=== PATIENT | male | born 1970 | race Caucasian/White ===

== ENCOUNTER 2025-05-11 15:05 | Emergency (ER) | payer BC, SELFPAY ==
--- NOTE | ~2025-05-11 | CT_ITS ---
EXAMINATION: CT HEAD WITHOUT CONTRAST CLINICAL INFORMATION: New onset dizziness, headache COMPARISON: None available. TECHNIQUE: Contiguous axial imaging was performed from the skull base to vertex without intravenous administration of contrast. This CT examination was performed using dose optimization techniques as appropriate, variously including the following: *Automated exposure control *Adjustment of mA and/or kV according to patient size (this includes techniques or standardized protocols for targeted exams where dose is matched to indication/reason for exam; i.e. extremities or head) *Use of iterative reconstruction technique FINDINGS: There is no evidence of acute intracranial hemorrhage or edematous large vessel territorial infarction. No abnormal mass effect or midline shift is seen. Phan to white matter differentiation is well preserved. No abnormal extra-axial fluid collections are identified. The ventricles are normal in size. No abnormal attenuation in the brain parenchyma. Cerebellar tonsils appear appropriately positioned. No acute calvarial fracture.. Paranasal sinuses and mastoid air cells are well-aerated. CT/CT head/brain wo IV con IMPRESSION: No CT evidence of acute intracranial hemorrhage or edematous territorial infarction.. Cause of the patient's symptoms has not been determined. Clinically correlate. Further imaging/follow-up imaging as clinically indicated. Electronically signed by: Eligio Sarabia MD 05/11/2025 04:27 PM [facility]
--- NOTE | ~2025-05-11 | XR_ITS ---
EXAMINATION: XR CHEST 2 VIEWS HISTORY: dizziness COMPARISON: There are no prior studies available for comparison. FINDINGS: PA and lateral views of the chest are submitted. The lungs are expanded and clear. There is no pleural effusion, pneumothorax, or pulmonary vascular congestion. The heart is normal in size. There is mild degenerative disc disease of the spine. XR/XR chest 2V IMPRESSION: No acute cardiopulmonary abnormality. Electronically signed by: Carlitos Zhou MD 05/11/2025 03:51 PM [facility]
[2025-05-11 15:24] VITALS: BP 157/88; PULSE 63; RESP 18; TEMP 36; O2SAT 96; BMI 33.6
--- NOTE | 2025-05-11 15:24 | ED_ITS ---
HPI - General Adult General Chief complaint: General Medical Stated complaint: vertigo, bp was high. ref here by pc Time Seen by Provider: 05/11/25 19:40 Source: patient, RN notes reviewed and old records reviewed Mode of arrival: ambulatory Limitations: no limitations History of Present Illness ED Provider: Gurpreet JOSEPH narrative: 55-year-old male who denies any past medical history presents for evaluation of dizziness and high blood pressure The patient reports that he was sick last week for 3 days with what he thinks was the flu. He reports this morning he woke up feeling somewhat dizzy that seen worse with positional changes, especially when he bent over to put his boots on. 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 The patient denies any headaches. He reports his symptoms have resolved. Denies any history of high blood pressure he is not currently on any medication. He does reports some mild left-sided facial pressure in his concerned he is getting a sinus infection. He reports chronic tinnitus No other complaints or concerns Related Data Previous Rx's ?Medication ?Instructions ?Recorded azithromycin 250 mg tablet See Rx Instructions PO .COM PLEX #6 05/11/25 tabs Allergies Allergy/AdvReac Type Severity Reaction Status Date / Time No Known Allergies Allergy Verified 05/11/25 15:25 Review of Systems 2 Constitutional: Constitutional: Denies body ache(s), Denies chills, Denies fever(s) and Denies headache(s) Eyes: Eyes: Denies blurry vision and Denies irritation ENT: Denies dysphagia, Reports vertigo, Reports dizziness, Denies headache(s), Reports nasal congestion, Reports tinnitus and Denies sore throat Cardiovascular: Cardiovascular: Denies chest pain, Denies rapid heart rate and Denies dyspnea on exertion Respiratory: Respiratory: Denies cough and Denies dyspnea on exertion Gastrointestinal: Gastrointestinal: Denies abdominal pain, Denies dysphagia, Denies nausea and Denies vomiting Musculoskeletal: Musculoskeletal: Denies back pain Integumentary/Breasts: Skin/Breast: Denies rash Neurologic: Reports vertigo, Reports dizziness and Denies headache(s) Psychiatric: Psychiatric: Denies anxiety PMFSH Social History Social History Smoked in Last 30 Days: No Use of substances other than those prescribed or required for medical reasons: No Advance Directives: No Advance Directives Information Provided: Yes Do you have a plan to hurt others: No Plan Physical Exam ED Vital Signs: Vital Signs - 24 hr 05/11/25 15:24 05/11/25 18:50 05/11/25 20:55 Temperature 96.8 F 97.9 F 97.8 F Pulse Rate 63 96 57 Respiratory Rate 18 19 16 Blood Pressure 157/88 H 133/84 151/93 H Pulse Oximetry 96 96 97 Oxygen Delivery Method Room Air Room Air Room Air BMI result Body Mass Index 33.6 Const General: healthy appearing, comfortable, no acute distress, alert and awake Nutritional Appearance: well nourished Orientation/consciousness: patient oriented x3 HENMT Head: Yes normocephalic and Yes atraumatic Ears: external ears normal, TM's normal bilaterally and EAC's normal Eyes Eyelids: Yes eyelids normal Conjunctivae: conjunctivae normal Sclerae: sclerae normal Corneas: corneas normal Pupils: Equal, round and reactive pupils present EOM: EOMs intact bilaterally Neck Neck: Yes full ROM Resp Effort & Inspection: normal respiratory effort, able to speak in complete sentences and not labored Cardio Rate: regular rate Rhythm: regular rhythm GI Inspection: No distended Palpation (GI): Soft to palpation, not firm, nontender, no guarding and not rigid Skin General skin exam: elasticity normal Neuro General: patient oriented x3 Cranial nerves: Yes CN's II-XII intact bilaterally, Yes Equal, round and reactive pupils present and Yes Bilaterally intact EOM present Cognition (Neuro): normal cognition Gait exam (Neuro): Normal gait present Motor exam (neuro): 5/5 motor strength present throughout, Pronator motor function not present, no tremor noted, no asterixis and Motor fasciculations not present Coordination: [id number] test normal, tandem gait normal and Normal rapid alternating movements of the distal upper extremity present (Neuro) Romberg Test: Negative Extrem Other: Moving all extremities well without any obvious deformities Course Course Course Narrative: Rapid medical examination performed in triage by Padmini Friedman PA-C: Patient is a 55 year old assigned male at presenting to the emergency department with dizziness and high blood pressure. Patient states that he is having dizziness and works at a school where he had his blood pressure checked and it was high. Detailed physical exam and review of systems are deferred to the school counsellor. EKG, labs, imaging ordered. Patient placed back in the waiting room pending room availability and results. Medical Decision Making Medical Decision Making [facility] Narrative: 55-year-old healthy male presents for evaluation of an episode of dizziness and high blood pressure that was checked outpatient. He denies any history of hypertension. He is not any medications. Does report being sick last week and some facial congestion with postnasal drip developing today. His exam is benign, he has an NIH stroke score of 0 and a negative cerebellar exam. He did have a CT scan ordered in triage that was unremarkable. His labs are reassuring. Ultimately he is currently asymptomatic. His symptoms are most consistent with benign paroxysmal positional vertigo, not a central CVA. His symptoms were worse with positional changes, they resolved spontaneously. He does have a history of sinus infections. We will treat his likely developing sinusitis with azithromycin and he will follow up with his primary doctor as an outpatient. Differential Diagnosis Differential Diagnoses: The differential diagnosis associated with the presentation includes Peripheral vertigo Central vertigo Sinusitis Upper respiratory infection Hypertension Intracranial hemorrhage less likely Lab Data [facility] Lab Attestation statement: I reviewed the patient's lab results. No leukocytosis or anemia. Normal platelet count. No electrolyte abnormalities warranting dimension. 05/11/25 15:33 05/11/25 15:33 Labs: Lab Results 05/11/25 Range/Units 15:33 WBC 8.3 (4.8-10.8) X10*3/uL RBC 4.75 (4.60-5.80) X10*6/uL Hgb 14.9 (14.0-18.0) g/dl Hct 44.1 (42.0-52.0) % MCV 92.8 (80.0-98.0) fL MCH 31.4 (27.0-33.0) pg MCHC 33.8 (31.0-36.0) g/dl RDW 12.1 (11.0-16.0) % Plt Count 299 (160-400) X10*3/uL MPV 8.7 L (9.4-12.4) fL Immature Gran % (Auto) 0.4 (0.0-0.4) % Neut % (Auto) 59.3 (45-73) % Lymph % (Auto) 23.0 (20-40) % Wilson % (Auto) 11.7 H (2-11) % Eos % (Auto) 4.8 H (0-4) % Baso % (Auto) 0.8 (0-2) % Lymph # (Auto) 1.9 (1.2-4.9) X10*3/uL Wilson # (Auto) 1.0 (0.1-1.2) X10*3/uL Eos # (Auto) 0.4 (0.0-0.4) X10*3/uL Baso # (Auto) 0.1 (0.0-0.2) X10*3/uL Abs Immat Gran (auto) 0.03 (0.00-0.03) X10*3/uL Absolute Neuts (auto) 4.9 (2.0-8.3) x10*3/uL Absolute Nucleated RBC 0.000 (0.0-0.012) X10*3/uL Nucleated RBC % (auto) 0.0 (0.0-0.2) /100WBC PT 12.7 H (10.9-12.4) SEC INR 1.1 (0.9-1.1) Sodium 138 (135-145) mmol/L Potassium 4.0 (3.3-5.1) mmol/L Chloride 106 (96-108) mmol/L Carbon Dioxide 25 (22-29) mmol/L Anion Gap 11 L (12-20) BUN 13 (9-16) mg/dL Creatinine 0.78 (0.5-1.4) mg/dL Estim Creat Clear Calc 127.5 Estimated GFR > 60 Random Glucose 101 (60-115) mg/dL Calcium 8.7 (8.4-10.2) mg/dL Total Bilirubin 0.3 (0.0-1.0) mg/dL AST 37 (5-37) U/L ALT 55 H (0-40) U/L Alkaline Phosphatase 56 (39-117) U/L Troponin I High Sens < 2.7 (<3.5-35.0) ng/L Total Protein 7.2 (6.5-8.0) g/dL Albumin 4.4 (3.5-5.0) g/dL Radiology Impression Discussion of test interpretation with radiology: I have reviewed the radiologist's reading. Radiologist Impression: FINDINGS: There is no evidence of acute intracranial hemorrhage or edematous large vessel territorial infarction. No abnormal mass effect or midline shift is seen. Phan to white matter differentiation is well preserved. No abnormal extra-axial fluid collections are identified. The ventricles are normal in size. No abnormal attenuation in the brain parenchyma. Cerebellar tonsils appear appropriately positioned. No acute calvarial fracture.. Paranasal sinuses and mastoid air cells are well-aerated. CT/CT head/brain wo IV con IMPRESSION: No CT evidence of acute intracranial hemorrhage or edematous territorial infarction.. Cause of the patient's symptoms has not been determined. Clinically correlate. Further imaging/follow-up imaging as clinically indicated. Electronically signed by: Eligio Sarabia MD 05/11/2025 04:[address] [facility] Tests considered The following testing was considered but not selected: Consider CT angiography of the head and neck but ultimately I have a very low suspicion for posterior CVA due to the fact the patient is currently asymptomatic and his cerebellar exam was negative and this was deferred. Discharge Plan Discharge Clinical Impression: Sinusitis, Vertigo Patient Disposition: Home, Self-Care Instructions: Sinusitis (ED), Vertigo (ED) Additional Instructions: Your workup in the ER today was reassuring. This includes your labs, CT scan. Your symptoms are likely due to peripheral vertigo which may be triggered by a viral illness or sinus infection. Take the azithromycin as prescribed. Follow up with your primary doctor, return for new or worsening symptoms Prescriptions: New azithromycin 250 mg tablet See Rx Instructions .ROUTE .COMPLEX Qty: 6 0RF Rx Instructions: For 250 mg dose pack: take 500 mg today (day 1), then 250 mg for 4 days (days 2-5) Print Language: Latvian
--- NOTE | 2025-05-11 15:25 | ECG_ITS ---
Test Reason : dizziness Blood Pressure : */* mmHG Vent. Rate : 66 BPM Atrial Rate : 66 BPM P-R Int : 156 ms QRS Dur : 94 ms QT Int : 416 ms P-R-T Axes : 17 -35 7 degrees QTcB Int : 436 ms Normal sinus rhythm Left axis deviation Abnormal ECG When compared with ECG of 10-Dec-2013 15:25, No significant change was found Referred By: Padmini Friedman Electronically Signed By: Darren Marquez
[2025-05-11 15:40] LABS: MANUAL DIFF FLAG NO
[2025-05-11 15:43] LABS: Hematocrit 44.1 % (42.0-52.0); Hemoglobin 14.9 g/dl (14.0-18.0); Imm Gran Abs Auto 0.03 X10*3/uL (0.00-0.03); Imm Gran Pct Auto 0.4 % (0.0-0.4); Lymphocytes Absolute Auto 1.9 X10*3/uL (1.2-4.9); Mean Corpuscular HGB Conc 33.8 g/dl (31.0-36.0); Mean Corpuscular Hemoglobin 31.4 pg (27.0-33.0); Mean Corpuscular Volume 92.8 fL (80.0-98.0); NRBC Abs Auto 0.000 X10*3/uL (0.0-0.012); NRBC Pct Auto 0.0 /100WBC (0.0-0.2); Platelet Count 299 X10*3/uL (160-400); Red Blood Count 4.75 X10*6/uL (4.60-5.80); White Blood Count 8.3 X10*3/uL (4.8-10.8)
[2025-05-11 15:48] LABS: INTERNATIONAL NORM RATIO 1.1 (0.9-1.1); Prothrombin Time 12.7 SEC (10.9-12.4)
[2025-05-11 16:05] LABS: Alanine Aminotransferase 55 U/L (0-40); Albumin Level 4.4 g/dL (3.5-5.0); Alkaline Phosphatase 56 U/L (39-117); Anion Gap 11 (12-20); Aspartate Amino Transferase 37 U/L (5-37); Blood Urea Nitrogen 13 mg/dL (9-16); Calcium 8.7 mg/dL (8.4-10.2); Carbon Dioxide 25 mmol/L (22-29); Chloride 106 mmol/L (96-108); Creatinine Clr Calc Pharmacy 127.5; Estimated Glomerular Filt Rate > 60; Potassium 4.0 mmol/L (3.3-5.1); Sodium 138 mmol/L (135-145); Total Protein 7.2 g/dL (6.5-8.0)
[2025-05-11 16:07] LABS: Troponin-I High Sensitivity < 2.7 ng/L (<3.5-35.0)
[2025-05-11 18:50] VITALS: BP 133/84; PULSE 96; RESP 19; TEMP 36.6; O2SAT 96
[2025-05-11 20:55] VITALS: BP 151/93; PULSE 57; RESP 16; TEMP 36.6; O2SAT 97
[2025-05-11 21:18] VITALS: BP 151/93; PULSE 57; RESP 16; TEMP 36.6; O2SAT 97
== END 2025-05-11 21:19 | disposition home or self-care (01) ==
PROVIDERS: Physician Assistant Medical; Emergency Provider Emergency Medicine; PCP Family Medicine
DX: H81.10 Benign paroxysmal vertigo, unspecified ear (principal); J32.9 Chronic sinusitis, unspecified; Z79.899 Other long term (current) drug therapy
CPT/HCPCS: 36415; 70450; 71046; 80053; 84484; 85025; 85610; 93005; 99284

== ENCOUNTER → 2025-05-11 15:25 | Outpatient (BNV) | payer BC, SELFPAY | PROVIDERS: Emergency Provider Emergency Medicine; PCP Family Medicine; Visit Provider Internal Medicine Cardiovascular Disease | DX: R94.31 Abnormal electrocardiogram [ECG] [EKG] (principal); R42 Dizziness and giddiness | CPT/HCPCS: 93010 ==

== ENCOUNTER → 2025-05-11 15:25 | Outpatient (BNV) | payer SELFPAY | PROVIDERS: PCP Family Medicine; Visit Provider Radiology Diagnostic Radiology | DX: R51.9 Headache, unspecified (principal); R42 Dizziness and giddiness | CPT/HCPCS: 70450; 71046 ==